=== PATIENT | female | born 1935 | race Caucasian/White ===

== ENCOUNTER 2017-03-04 11:02 | Emergency (ER) | payer MEDICARE ==
[~2017-03-04] VITALS: Ht 161.9 cm; Wt 74.1 kg
[~2017-03-04 11:02] MED LIST: ASCO100089 PO; ASPI325T32 PO; CALC-140 PO; CHOL200047 PO; CYAN500 PO; DIPH50C PO; ESTR0.5T4 PO; FISH OIL 500 M1 EAC2 PO; IBUP-1827 PO; LEVO100T6 PO; MULT-1018 PO; OMEP20CA11 PO; OXYC-474 PO; SCOP1PAT TD
[2017-03-04 11:13] VITALS: BP 152/87; PULSE 80; RESP 16; O2SAT 95
[2017-03-04] MEDS ORDERED: Ondansetron 2 mg/mL 2 mL Inj IVPUSH ONE (11:20)
--- NOTE | 2017-03-04 11:28 | ED.REPORT ---
HPI-Extremity Problem Lower Date of Service Mar 04, 2017 ED Provider: Dominguez Liu PA-C Carolyn is a 81-year-old female with a history of right hip arthroplasty in 2013 presenting with a chief complaint of right hip pain. Patient reports that she had her right foot up on the toilet, clubbing or toenails when she felt her hip "pop out." She fell to the ground and was unable to stand. Patient denies striking her head, losing consciousness, neck pain. Denies numbness/tingling in the limb. Admits to nausea, which she believes is secondary to fentanyl provided by EMS. She states she is very sensitive to opiate pain medication, which makes her nauseous. Denies other complaints. Denies history of hip dislocation. Nursing Notes Stated Complaint: HIP PAIN Chief Complaint: Extremity Trauma Nursing Notes Reviewed: Yes Allergies: Coded Allergies: hydrocodone (Verified Allergy, Mild, nausea, 12/20/13) oxycodone (Verified Allergy, Mild, nausea, 12/20/13) tramadol (Verified Allergy, Mild, nausea, 12/20/13) codeine (Verified Adverse Reaction, Intermediate, N/V, 05/30/12) Scheduled Ascorbic Acid (Vitamin C) 1,000 Mg Tab.chew 1,000 MG PO DAILY Aspirin (Aspirin) 325 Mg Tablet 325 MG PO DAILY Calcium Carbonate/Vitamin D3 (Calcium + Vitamin D Tablet) 1 Each Tablet 1 EACH PO DAILY Cholecalciferol (Vitamin D3) (Vitamin D3) 2,000 Unit Capsule 2,000 UNIT PO DAILY Cyanocobalamin (Vitamin B12) 500 Mcg Tablet 1,000 MCG PO DAILY Estradiol (Estrace) 0.5 Mg Tablet 0.5 MG PO DAILY Levothyroxine (Levothyroxine) 100 Mcg Tablet 100 MCG PO DAILY Multivitamin (Multi Vitamin Daily) 1 Each Tablet 1 EACH PO DAILY Omeprazole (Omeprazole) 20 Mg Capsule.dr 20 MG PO DAILY [place] Oil/[place]-3 Fatty Acids (Fish Oil 500 mg Softgel) 1 Each Capsule 2 EACH PO DAILY Scheduled PRN Diphenhydramine Hcl (Benadryl) 50 Mg Capsule 50 MG PO HS PRN PRN Insomnia Ibuprofen (Ibuprofen) 600 Mg Tablet 600 MG PO Q6H PRN PRN For Pain Oxycodone (Roxicodone) 5 Mg Tablet 5-10 MG PO Q3-4H PRN PRN For Pain Scopolamine (Transderm-Scop) 1 Each Patch.td72 1 EACH TD Q3days PRN PRN For Nausea General Time Seen by MD: 11:15 Chief Complaint Hip injury right Past Medical History Past Medical History Hypothyroid Past Surgical History Right hip arthroplasty Smoking History Never Smoker Review of Systems General: Denies fever, chills, malaise. HEENT: Denies congestion, headache, sore throat. Respiratory: Denies dyspnea, cough, shortness of breath, wheezing. Cardiovascular: Denies chest pain, palpitations. Gastrointestinal: Denies vomiting, diarrhea, abdominal pain. Genitourinary: Denies frequency, urgency, dysuria, hematuria. Otherwise as noted in HPI. Physical Exam General: Well appearing, well developed, well nourished, no acute distress. Right leg: Shortened and internally rotated. BP and PT pulses 2+. Brisk capillary refill intact in distal phalanges. Sensation intact in all dermatomes. Head: Atraumatic, normocephalic. Eyes: No scleral icterus or injection. No discharge. Vision grossly intact. ENT: Voice clear, hearing grossly intact. Respiratory: Regular rate and rhythm. Breath sounds present, clear to auscultation and equal bilaterally. No respiratory distress. No increased work of breathing, speaks in complete sentences. Cardiovascular: Regular rate and rhythm, without murmur, gallop or rub. No pedal edema. Gastrointestinal: Abdomen flat and non-tender without guarding or rebound. Bowel sounds normoactive. Skin: Pale, cool and moist. Neurological: Grossly nonfocal. Psychological: Alert and oriented. Speech appropriate, linear and logical. Behavior appropriate. Initial Vital Signs Vital Signs (First) Date Time Temp Pulse Resp B/P Pulse Ox O2 Delivery O2 Flow Rate FiO2 03/04/17 11:13 36.3 80 16 152/87 95 Room Air 03/04/17 13:09 2 Elevated blood pressure Interpretation & Diagnostics Lab Results Interpretation Result Diagram: 03/04/17 1219 03/04/17 1219 Test 03/04/17 12:19 White Blood Count 9.9th/mm3 (3.8-10.1) Red Blood Count 4.98mil/mm3 (3.90-5.20) Hemoglobin 14.4g/dL (12.0-15.6) Hematocrit 42.7% (35.0-46.0) Mean Corpuscular Volume 85.7fL (81-100) Mean Corpuscular Hemoglobin 28.9pg (27.0-35.0) Mean Corpuscular Hemoglobin Concent 33.7% (32.0-37.0) Red Cell Distribution Width 14.4% (12.3-15.4) Platelet Count 246bil/L (150-400) Neutrophils (%) (Auto) 77.0% (40-74) Lymphocytes (%) (Auto) 13.5% (14-46) Monocytes (%) (Auto) 5.6% (4-12) Eosinophils (%) (Auto) 3.0% (0-5) Basophils (%) (Auto) 0.5% (0-3) Sodium Level 136mEq/L (134-144) Potassium Level 4.6mEq/L (3.5-5.2) Chloride Level 101mEq/L (97-108) Carbon Dioxide Level 19mmol/L (18-29) Blood Urea Nitrogen 21mg/dL (8-27) Creatinine 0.83mg/dL (0.57-1.00) Estimat Glomerular Filtration Rate 94mL/min (>59) Glucose Level 145mg/dL (60-99) Calcium Level 9.1mg/dL (8.5-10.1) Total Bilirubin 0.2mg/dL (0.0-1.2) Aspartate Amino Transf (AST/SGOT) 17U/L (0-50) Alanine Aminotransferase (ALT/SGPT) 15U/L (0-32) Alkaline Phosphatase 44U/L (25-165) Total Protein 6.7g/dL (6.4-8.4) Albumin 4.2g/dL (3.4-5.0) X-Ray Interpretation Xray Interpretation: PROCEDURE: X-RAY RIGHT HIP COMPLETE, MINIMUM TWO VIEWS ([id number]) INDICATIONS: dislocation of the right hip. History of prior right hip arthroplasty. IMPRESSION: Posterior dislocation of the right femoral prosthetic with respect to the acetabulum. No fractures. Interpretation / Wet Read by: Interpret - [facility], [facility] Interpretation: PROCEDURE: X-RAY PELVIS, ONE OR TWO VIEWS ([id number]) INDICATIONS: 81-year-old female status post closed reduction of right hip dislocation. IMPRESSION: Successful closed reduction of right hip dislocation, status post right hip arthroplasty. Interpretation / Wet Read by: Interpret - Radiologist Procedures Proced Mod Sedation/Analgesia Time: 12:45 Procedure Performed by: ED physician Sedation Time: 10 - 15 min Consent / Setup: Informed consent provided, Consent from patient, Time-out performed Indication: Fracture reduction Preparation: immigration coordinator applied, Pulse oximeter applied, Constant attendance, IV access established, Eval last meal time, Procedure explained VS Prior to Procedure: All vital signs normal Mallampati: Class & Anatomy: 2 top tonsil/uvula/palate Airway Exam: Normal anatomy CVS/Resp Exam: Normal breath sounds, Normal heart sounds Neuro Exam: Alert, Responsive Sedation: Sedation: Propofol ASA Classification: 2 mild systemic disease Response During Procedure: Handled secretions adeq, Maintained airway well, Oxygenation stable, Sedation appropriate, Vital signs stable Complications During/After: None Reversal: None required Mental Status After Procedure: Alert, Oriented X3, Response to verbal stim, Response to painful stim, Normal per age, At patient's baseline Post-Procedure: Alert prior to discharge, Vital signs normal Attestation: I performed procedure (ED physician supervision), I performed sedation (ED physician supervision) Reduction Post Dislocation Hip Time: 12:46 Procedure Performed by: ED physician Consent / Timeout / Setup: Informed consent provided, Consent from patient, Time-out performed, Pulse oximeter applied, immigration coordinator applied Procedural Sedation/Analgesia: Sedation: Propofol Which Hip and Technique: Right hip Neurovascular: Intact pre-procedure, Intact post-procedure Post-Procedure / Complications: Reduced per examination, Procedure successful, Condition improved, Tolerated procedure well, Patient stable Re-Eval/Medical Decision Med Decision/Clinical Course 81-year-old female history of right hip arthroplasty presents with chief complaint of right hip pain. Patient reports she had her foot up on the toilet clipping her toenails when she felt the hip pop out, causing the fall. Denies striking her head, losing consciousness, injuring her neck. Physical examination reveals mild diaphoresis, shortened and internally rotated right leg. Neurovascularly intact. Visual reports sensitivity to opiate pain medication, and believes she is nauseous due to fentanyl given by medics. Zofran and IV ketorolac, IV acetaminophen provided for pain. X-ray imaging ordered, which reveals a dislocation without fracture. Dr. Husain performed reduction under procedural sedation with propofol without complication. DP and PT pulses 2+ following reduction. Patient reports decreased pain. Post reduction films reveal successful reduction. The patient is stable and safe to be discharged home. She ambulates successfully in the emergency department. Discussed prevention of future dislocations and [id number] analgesia. Patient declines opiate pain medication. Advised regarding primary care follow-up, provided emergency return precautions. Patient verbalized understanding of, and consent to, the plan. Discharge & Departure Impression: Primary Impression: Dislocation of right hip Encounter type: initial encounter Qualified Code: S73.004A - Unspecified dislocation of right hip, initial encounter Disposition: Home Discharge Condition All VS Reviewed: Yes Condition: Stable Patient Instructions: Hip Dislocation (ED) Additional Instructions: Evaluation for right hip pain March the department includes history, physical examination and x-rays which reveal a dislocation of your prosthetic right hip. We have reduced this dislocation here in the emergency department. There appears to be no damage to nerves or blood vessels, and we believe you are safe to return home. In order to prevent future dislocation, it is important to: Do not bend your hip past 90. Sit in a chair with your back straight and feet flat on the floor. Keep your knees apart when reclining. A pillow between your knees can be useful for this. The pain is best treated with 600 mg of ibuprofen (Advil, Motrin) every 6 hours , or 1000 mg of acetaminophen (Tylenol) every 6 hours. These drugs can be taken at the same time for more severe pain. Follow-up with your primary care provider in a few days to be sure this is progressing as expected. Return to emergency department for new or worsening symptoms including increasing pain, and inability to stand or walk or if he dislocated your hip again. Referrals: Juan Dhillon MD (PCP) EDSupervising Provider for APC: Durga Husain MD copies to: Juan Dhillon MD, Seth PA-C Mar 04, 2017 11:28 Alicia Locke Mar 04, 2017 12:50
[2017-03-04] MEDS ORDERED: Acetaminophen IV 1,000 MG in IV Premix 1 EACH IV ONE (11:35)
[2017-03-04] MEDS ORDERED: Promethazine Inj 25 MG in 0.9% Sodium Chloride 50 ML IV ONE (12:15)
[2017-03-04] MEDS ORDERED: fentaNYL-PF 50 mCg/mL 2 mL Inj IVPUSH PRN (12:15)
[2017-03-04 12:28] LABS: BASOPHILS % (AUTO) 0.5 % (0-3); MONOCYTES % (AUTO) 5.6 % (4-12); Mean Corpuscular Hemoglobin 28.9 pg (27.0-35.0); Mean Corpuscular Volume 85.7 fL (81-100); Platelet Count 246 bil/L (150-400)
[2017-03-04] MEDS ORDERED: Propofol 10,000 mCg/mL 100 mL Inj ONE (12:36)
[2017-03-04 12:37] VITALS: BP 134/84; PULSE 116; RESP 20; O2SAT 92
--- NOTE | 2017-03-04 12:37 | DRSVH ---
PROCEDURE: X-RAY RIGHT HIP COMPLETE, MINIMUM TWO VIEWS ([id number]) INDICATIONS: dislocation of the right hip. History of prior right hip arthroplasty. TECHNIQUE: 2 views of the hip were acquired. COMPARISON: [facility], CR, PELVIS W/LAT HIP (RT) (PNL), , 10:44. FINDINGS: Bones: The patient has had prior right hip arthroplasty. The femoral component is dislocated posteri radha with respect to the acetabular component with proximal migration of the femur with respect to th e acetabulum. No periprosthetic fractures are appreciated. No acute fractures are present. Soft tissues: No suspicious soft tissue calcifications or masses. IMPRESSION: Posterior dislocation of the right femoral prosthetic with respect to the acetabulum. No fractures. Dictated by: Chandan Winkler M.D. on 03/04/2017 at 11:34 Approved by: Chandan Winkler M.D. on 03/04/2017 at 11:35
[2017-03-04] MEDS ORDERED: Propofol 10 mg/mL 20 mL Inj IVPUSH ONE (12:40)
[2017-03-04 13:09] VITALS: BP 119/59; PULSE 69; RESP 18; O2SAT 97
--- NOTE | 2017-03-04 13:19 | DRSVH ---
PROCEDURE: X-RAY PELVIS, ONE OR TWO VIEWS ([id number]) INDICATIONS: 81-year-old female status post closed reduction of right hip dislocation. TECHNIQUE: 2 view(s) of the pelvis acquired. COMPARISON: [facility], CR, XR HIP 2VW RT, 03/04/2017, 11:27. [facility], CR, PELVIS W/LAT HIP (RT) (PNL), 12/03/2014, 10:44. [facility], CR, PELVIS W/LAT HIP (RT) (PNL), 09/25/2014, 9:26. FINDINGS: Bones: Right hip is now in anatomic alignment after closed reduction. Noncemented right hip arthropl asty hardware remains intact; lateral acetabular inclination is 27. There is mild left hip joint deg eneration. No suspicious bony lesions. Soft tissues: Visualized bowel gas pattern is normal. No suspicious soft tissue calcifications. IMPRESSION: Successful closed reduction of right hip dislocation, status post right hip arthroplasty. Dictated by: Berny Vargas M.D. on 03/04/2017 at 13:16 Approved by: Berny Vargas M.D. on 03/04/2017 at 13:17
[2017-03-04 13:50] VITALS: BP 94/56; PULSE 65; RESP 13; O2SAT 96
[2017-03-04 14:20] VITALS: BP 136/84
== END 2017-03-04 14:35 | disposition home or self-care (01) ==
LOC: EDBD 11:02 → SED 11:02
DX: S73.004A Unspecified dislocation of right hip, initial encounter (principal); X50.1XXA Overexertion from prolonged static or awkward postures, initial encounter; Y93.89 Activity, other specified; Y99.8 Other external cause status; Y92.9 Unspecified place or not applicable; E03.9 Hypothyroidism, unspecified; Z88.8 Allergy status to other drugs, medicaments and biological substances; Z79.82 Long term (current) use of aspirin; Z88.5 Allergy status to narcotic agent
CPT/HCPCS: 27265; 36415; 72170; 73502; 80053; 85025; 94799; 96374; 96375; 99152; 99285; J0131; J1885; J2405

== ENCOUNTER 2017-03-30 16:52 | Emergency (ER) | payer MEDICARE ==
[~2017-03-30] VITALS: Ht 160 cm; Wt 72.7 kg
[2017-03-30 16:58] VITALS: BP 188/106; PULSE 133; RESP 18; O2SAT 98
--- NOTE | 2017-03-30 17:43 | DRSVH ---
PROCEDURE: X-RAY CHEST ONE VIEW, PORTABLE ([id number]) INDICATIONS: CHEST PAIN TECHNIQUE: One view of the chest was acquired. COMPARISON: None. FINDINGS: Surgical changes and devices: sod cutter leads are seen over the chest. Previous low anterior ce rvical spine fusion noted by plate and screws. Lungs and pleura: No pleural effusions or pneumothorax. Lungs are clear. Mediastinum: Mediastinal contours appear normal. Heart size is normal. Bones and chest wall: Bilateral moderate degenerative changes in the glenohumeral joint with prominen t osteophyte formation on the humeral head neck junctions.. Overlying soft tissues appear unremarkab le. IMPRESSION: Acute disease is not seen in a semiupright portable chest. Moderate degenerative changes are seen bilaterally in the glenohumeral joints. Dictated by: Guido Del Rio M.D. on 03/30/2017 at 17:40 Approved by: Guido Del Rio M.D. on 03/30/2017 at 17:41
[2017-03-30 17:50] LABS: BASOPHILS % (AUTO) 0.5 % (0-3); EOSINOPHILS % (AUTO) 3.8 % (0-5); MONOCYTES % (AUTO) 6.5 % (4-12); Mean Corpuscular Hemoglobin 28.9 pg (27.0-35.0); Mean Corpuscular Volume 85.2 fL (81-100); NEUTROPHILS % (AUTO) 70.9 % (40-74); Platelet Count 264 bil/L (150-400)
[2017-03-30 18:12] VITALS: BP 144/91; PULSE 120; RESP 14; O2SAT 96
[2017-03-30 18:13] LABS: Magnesium 1.9 mg/dL (1.6-2.6)
--- NOTE | 2017-03-30 18:23 | ED.REPORT ---
HPI-Chest Pain 40 and Over Date of Service Mar 30, 2017 ED Provider: Jose Pro MD An 81 year old female with a history of cervical spine surgery, GERD and hypothyroidism with hormone replacement presents to the ED complaining of right- sided scapular pain. The pain radiates into her chest and back and is accompanied by mild shortness of breath, pleuritic pain, fatigue and tachycardia. She denies fever, chills, cough, lightheadedness, lower extremity edema or diaphoresis. The pt began experiencing these symptoms three days ago and has been unable to relieve them with heat or cream application. The pain is exacerbated by movement. The pt has been treating her pain with aspirin, the last dose of which was at 12:00. The pt denies a history of similar symptoms, but states that she had pneumonia within the last several months and her heartburn has been worse in the last few days. She denies recent travel. Nursing Notes Stated Complaint: CHEST PAIN Chief Complaint: Chest Pain Nursing Notes Reviewed: Yes Allergies: Coded Allergies: hydrocodone (Verified Allergy, Mild, nausea, 12/20/13) oxycodone (Verified Allergy, Mild, nausea, 12/20/13) tramadol (Verified Allergy, Mild, nausea, 12/20/13) codeine (Verified Adverse Reaction, Intermediate, N/V, 05/30/12) Scheduled Ascorbic Acid (Vitamin C) 1,000 Mg Tab.chew 1,000 MG PO DAILY Aspirin (Aspirin) 325 Mg Tablet 325 MG PO DAILY Atenolol (Atenolol) 25 Mg Tablet 25 MG PO DAILY Calcium Carbonate/Vitamin D3 (Calcium + Vitamin D Tablet) 1 Each Tablet 1 EACH PO DAILY Cholecalciferol (Vitamin D3) (Vitamin D3) 2,000 Unit Capsule 2,000 UNIT PO DAILY Cyanocobalamin (Vitamin B12) 500 Mcg Tablet 1,000 MCG PO DAILY Estradiol (Estrace) 0.5 Mg Tablet 0.5 MG PO DAILY Levothyroxine (Levothyroxine) 100 Mcg Tablet 100 MCG PO DAILY Multivitamin (Multi Vitamin Daily) 1 Each Tablet 1 EACH PO DAILY Omeprazole (Omeprazole) 20 Mg Capsule.dr 20 MG PO DAILY [place] Oil/[place]-3 Fatty Acids (Fish Oil 500 mg Softgel) 1 Each Capsule 2 EACH PO DAILY Scheduled PRN Cyclobenzaprine (Cyclobenzaprine) 10 Mg Tablet 10 MG PO TID PRN PRN Spasm Diphenhydramine Hcl (Benadryl) 50 Mg Capsule 50 MG PO HS PRN PRN Insomnia Ibuprofen (Ibuprofen) 600 Mg Tablet 600 MG PO Q6H PRN PRN For Pain Oxycodone (Roxicodone) 5 Mg Tablet 5-10 MG PO Q3-4H PRN PRN For Pain Scopolamine (Transderm-Scop) 1 Each Patch.td72 1 EACH TD Q3days PRN PRN For Nausea General Time Seen by MD: 17:10 Chief Complaint Other (Scapular pain) Hx Obtained From: Patient Arrived By: Walk-in Sudden in Onset?: No Onset Occurred: 3 days ago Symptom Duration: Since onset Recent Healthcare: No recent hospitalization, Recent doctor visit Similar Sx Previous: No Past Medical History Past Medical History Hypothyroid GERD Past Surgical History Right hip arthroplasty Cervical spine surgery Knee surgery Smoking History Never Smoker Social History Other Social History: Good social support Ambulatory Status Independent Review of Systems Review of Systems Note: tachycardia right scapular pain denies lower extremity edema Constitutional: Reports: Fatigue, Denies: Chills, Fever Respiratory: Reports: Pleuritic pain, Denies: Non-productive cough, Shortness of breath Skin: Denies Diaphoresis, Denies Rash Neurologic: Denies: Lightheaded Complete sys rev & neg: except as marked. Physical Exam Initial Vital Signs Vital Signs (First) Date Time Temp Pulse Resp B/P Pulse Ox O2 Delivery O2 Flow Rate FiO2 03/30/17 16:58 133 18 188/106 98 Room Air 03/30/17 22:22 36.6 Initial VS: Reviewed (afebrile) General/Constitutional: Awake, Alert Respiratory / Chest: Atraumatic, Breath sounds NL, Breath sounds = bilat, No respiratory distress Cardiovascular: Regular rhythm, Heart sounds NL, No gallop, No murmurs, No rubs Heart Rate / Rhythm: Positive: Tachycardia Abdomen: Atraumatic, Soft, Non-tender, BS normoactive Neck: Atraumatic, Supple, Full range of motion Back: Atraumatic, Full range of motion, No midline vertebral tend Lower Extremity / Pelvis / MS: Atraumatic, Full range of motion Skin: Atraumatic, Color NL, No rash, Warm, Dry Neurologic: Oriented X3, Speech NL, No motor deficits, No sensory deficits Psychiatric: Affect NL, Mood NL Head / Eyes: Atraumatic, Normocephalic, PERRL, EOMI ENT: Atraumatic, Airway patent, Mucous membranes moist Upper Extremity / MS: Atraumatic, Full range of motion Interpretation & Diagnostics Interpretation & Diagnostics: Angiography CT: IMPRESSION: 1. Acute changes are seen on this CT of the thorax done for pulmonary embolus. There is no pulmonary embolus. No infiltrates or effusions are seen. No evidence for aneurysm or dissection of the aorta. Cause of back pain is not identified. Dictated by: Guido Del Rio M.D. on 03/30/2017 at 19:10 Approved by: Guido Del Rio M.D. on 03/30/2017 at 19:15 ADDENDUM: The impression should state no acute changes are seen. No abnormality is seen on CT. Dictated by: Guido Del Rio M.D. on 03/30/2017 at 20:22 Approved by: Guido Del Rio M.D. on 03/30/2017 at 20:22 Lab Results Interpretation Result Diagram: 03/30/17 1746 03/30/17 1746 Test 03/30/17 17:46 White Blood Count 7.4th/mm3 (3.8-10.1) Red Blood Count 5.08mil/mm3 (3.90-5.20) Hemoglobin 14.7g/dL (12.0-15.6) Hematocrit 43.3% (35.0-46.0) Mean Corpuscular Volume 85.2fL (81-100) Mean Corpuscular Hemoglobin 28.9pg (27.0-35.0) Mean Corpuscular Hemoglobin Concent 33.9% (32.0-37.0) Red Cell Distribution Width 14.0% (12.3-15.4) Platelet Count 264bil/L (150-400) Neutrophils (%) (Auto) 70.9% (40-74) Lymphocytes (%) (Auto) 17.8% (14-46) Monocytes (%) (Auto) 6.5% (4-12) Eosinophils (%) (Auto) 3.8% (0-5) Basophils (%) (Auto) 0.5% (0-3) D-Dimer 0.73mg/L FEU (<0.50) Sodium Level 139mEq/L (134-144) Potassium Level 4.1mEq/L (3.5-5.2) Chloride Level 100mEq/L (97-108) Carbon Dioxide Level 23mmol/L (18-29) Blood Urea Nitrogen 14mg/dL (8-27) Creatinine 0.82mg/dL (0.57-1.00) Estimat Glomerular Filtration Rate 95mL/min (>59) Glucose Level 117mg/dL (60-99) Calcium Level 9.4mg/dL (8.5-10.1) Magnesium Level 1.9mg/dL (1.6-2.6) Total Bilirubin 0.2mg/dL (0.0-1.2) Aspartate Amino Transf (AST/SGOT) 15U/L (0-50) Alanine Aminotransferase (ALT/SGPT) 13U/L (0-32) Alkaline Phosphatase 49U/L (25-165) Troponin T < 0.010ug/L (0.0-0.011) Total Protein 6.8g/dL (6.4-8.4) Albumin 4.4g/dL (3.4-5.0) Thyroid Stimulating Hormone (TSH) 7.660uIU/mL (0.450-4.500) ECG Interpretation ECG Interpretation: sinus tachycardia with a rate of [address] segment changes Time: 17:10 Interpreted by: ED physician X-Ray Chest Interpretation Chest Xray Interpretation: IMPRESSION: Acute disease is not seen in a semiupright portable chest. Moderate degenerative changes are seen bilaterally in the glenohumeral joints. Dictated by: Guido Del Rio M.D. on 03/30/2017 at 17:40 Approved by: Guido Del Rio M.D. on 03/30/2017 at 17:41 Interpretation / Wet Read by: Interpret - Radiologist Re-Eval/Medical Decision Source of Hx: Old records Time of Eval: 20:09 Re-Evaluation/Progress Note: Pt rechecked, whose condition is unchanged. Radiology results are discussed. Time of Eval: 21:27 Patient Status: Condition improved Re-Evaluation/Progress Note: Pt rechecked, whose condition has improved. The diagnosis and plan for discharge are discussed. The pt understands and agrees with the plan. All questions are addressed at this time. Counseled Regarding: Diagnosis, Lab results, Need for follow-up, When/why to return to ED Discharge & Departure Primary Impression: Non-cardiac chest pain Additional Impressions: Sinus tachycardia Thoracic back pain Chronicity: acute Back pain laterality: right Qualified Code: M54.6 - Pain in thoracic spine Disposition: Home Discharge Condition All VS Reviewed: Yes Condition: Stable Additional Instructions: Emergency department evaluation today included interview, examination, labs CT scan of chest. No serious cause for upper back pain and rapid heart rate is identified. We considered cardiac disease, pulmonary embolism, pneumonia, abnormalities of the great vessels in the chest. Each of these was excluded with clinical data. We found an elevated thyroid-stimulating hormone this would not be expected to be related to tachycardia. We are starting atenolol 25 mg daily to control heart rate, this should be reviewed by primary care and cardiology soon, keep the appointment you have with cardiology and follow-up with primary care as soon as possible. Ibuprofen 400-600 mg 3-4 times a day best if taken with food should help with pain. Cyclobenzaprine 10 mg up to 3 times a day will also be helpful, this may cause drowsiness. Ice to sore areas , keeping the ice away from direct skin contact. Return to emergency department for increasing pain in her chest fevers vomiting shortness of breath. After having been started on the atenolol, be cautious when going from lying to standing up. Referrals: Juan Dhillon MD (PCP) Eliazar Attestation Portions of this note were transcribed by Jhonatan Lim. I, Dr. Pro personally performed the history, physical exam and medical decision-making; I reviewed and confirmed the accuracy of the information in the transcribed note. Signed by: Eliazar Aguilar, 03/30/2017 and 2151. copies to: Juan Dhillon MD, Donald L MD Mar 30, 2017 18:23 JHONATAN LIM Mar 30, 2017 18:31
[2017-03-30 18:24] LABS: TROPONIN T < 0.010 ug/L (0.0-0.011)
[2017-03-30] MEDS ORDERED: Ketorolac 15 mg/mL Inj IVPUSH ONE (18:25)
[2017-03-30] MEDS ORDERED: 0.9% Sodium Chloride 1,000 ML IV ONE (18:25)
--- NOTE | 2017-03-30 19:17 | DRSVH ---
PROCEDURE: CT ANGIO CHEST PULMONARY EMBOLISM ([id number]) INDICATIONS: back pain, tachycaredia, elevated dimer TECHNIQUE: After the administration of intravenous contrast, 2 mm thick sections acquired from the pulmonary api nabeel to the posterior costophrenic angles. 3-dimensional maximum intensity projection (MIP) coronal a nd sagittal reformats were then acquired through the thorax. For radiation dose reduction, the follo wing was used: automated exposure control, adjustment of mA and/or kV according to patient size. COMPARISON: [facility], CR, XR CHEST 1VW (PORTABLE), 03/30/2017, 17:10. FINDINGS: Image quality: Excellent. Pulmonary arteries: Pulmonary arteries are normal in size, and demonstrate no intraluminal filling d efects to suggest central pulmonary embolism. Lungs and pleura: Lungs are clear. No pleural effusions or pneumothorax. Central and peripheral ai rways are patent. Mediastinum: Heart size is normal, without pericardial effusion. No mediastinal or hilar adenopathy . Thoracic aorta is normal in caliber and enhancement. Esophagus is normal in caliber, without hiat al hernia. Bones and chest wall: No suspicious bony lesions. No vertebral body fractures. Diffuse mild to moder ate spondylosis is present. Ribs and thoracic spine appear intact throughout. Thyroid gland is with in normal limits. No axillary or supraclavicular adenopathy. Abdomen: Visualized upper abdominal solid organs appear normal in the early arterial phase of enhanc ement. IMPRESSION: 1. Acute changes are seen on this CT of the thorax done for pulmonary embolus. There is no pulmonary embolus. No infiltrates or effusions are seen. No evidence for aneurysm or dissection of the aorta. Cause of back pain is not identified. Dictated by: Giudo Del Rio M.D. on 03/30/2017 at 19:10 Approved by: Guido Del Rio M.D. on 03/30/2017 at 19:15
[2017-03-30] MEDS ORDERED: CYCL10TA9 PO (21:40)
[2017-03-30] MEDS ORDERED: ATEN25TA PO (21:40)
[2017-03-30 22:22] VITALS: BP 144/98; PULSE 99; RESP 16; O2SAT 99
== END 2017-03-30 21:36 | disposition home or self-care (01) ==
LOC: SED 16:52
DX: R07.89 Other chest pain (principal); R00.0 Tachycardia, unspecified; M54.6 Pain in thoracic spine; K21.9 Gastro-esophageal reflux disease without esophagitis; Z79.82 Long term (current) use of aspirin; Z79.899 Other long term (current) drug therapy; Z88.5 Allergy status to narcotic agent
CPT/HCPCS: 36415; 71010; 71275; 80053; 83735; 84443; 84484; 85025; 85378; 93005; 96361; 96374; 99285; J1885; J7030; Q9967